=== PATIENT | male | born 1970 | race African-American/Black ===

== ENCOUNTER 2025-03-31 22:00 | Emergency (ER) | payer MEDICAID ==
[~2025-03-31] VITALS: Ht 172.7 cm; Wt 88.0 kg
[2025-03-31 22:24] VITALS: O2SAT 100
[2025-03-31] MEDS ORDERED: MUPI1OIN4 TP (22:41)
[2025-03-31] MEDS ORDERED: SULF1TAB48 MT (22:41)
[2025-04-01 00:05] VITALS: BP 128/76; PULSE 88; RESP 16; TEMP 36.7; O2SAT 100
== END 2025-04-01 00:12 | disposition home or self-care (01) ==
LOC: ER 22:00
DX: L73.9 Follicular disorder, unspecified (principal)
CPT/HCPCS: 99283

== ENCOUNTER 2025-04-08 15:18 | Emergency (ER) | payer MEDICAID ==
[~2025-04-08] VITALS: Ht 172.7 cm; Wt 88.0 kg
[~2025-04-08 15:18] MED LIST: MUPI1OIN4 TP; SULF1TAB48 MT
[2025-04-08 15:33] VITALS: O2SAT 99
[2025-04-08] MEDS ORDERED: CEPH500T MT (15:54)
[2025-04-08 16:05] VITALS: BP 130/80; PULSE 78; RESP 15; TEMP 36.7; O2SAT 99
== END 2025-04-08 16:06 | disposition home or self-care (01) ==
LOC: ER 15:18
DX: D22.5 Melanocytic nevi of trunk (principal); Z79.899 Other long term (current) drug therapy
CPT/HCPCS: 99283